=== PATIENT | female | born 1950 | race Caucasian/White ===

== ENCOUNTER 2022-12-07 08:48 | Emergency (ER) | payer MEDICARE, BC ==
[~2022-12-07] VITALS: Ht 157.5 cm; Wt 72.1 kg
[2022-12-07] MEDS ORDERED: fentaNYL 100 MCG/2 ML INJECTION IV PRN (09:05)
[2022-12-07] MEDS ORDERED: ONDANSETRON 4MG 2ML VIAL IV ONE (09:05)
[2022-12-07 09:13] VITALS: TEMP 97.3
[2022-12-07] MEDS ORDERED: fentaNYL 100 MCG/2 ML INJECTION IV ONE (09:20)
[2022-12-07] MEDS ORDERED: NS 1,000 ML IV ONE (09:30)
[2022-12-07 09:36] LABS: BASO # 0.1 10^3/uL (0.0-0.2); BASO % 0.9 % (0.0-1.0); EOS # 0.3 10^3/uL (0.0-0.5); EOS % 2.7 % (0.0-3.0); HEMATOCRIT 35.7 % (36.0-47.0); HEMOGLOBIN 11.7 g/dl (12.0-15.5); LYMPH # 2.2 10^3/uL (1.5-5.0); LYMPH % 23.7 % (24.0-44.0); MEAN CORPUSCULAR HEMOGLOBIN 30.4 pg (27.0-33.0); MEAN CORPUSCULAR HGB CONC 32.8 g/dl (32.0-36.5); MEAN CORPUSCULAR VOLUME 92.7 fl (80.0-96.0); MONO # 0.7 10^3/uL (0.0-0.8); NEUTROPHILS # 5.9 10^3/uL (1.5-8.5); NEUTROPHILS % 64.4 % (36.0-66.0); PLATELET COUNT, AUTOMATED 335 10^3/uL (150-450); RED BLOOD COUNT 3.85 10^6/uL (4.00-5.40); WHITE BLOOD COUNT 9.1 10^3/uL (4.0-10.0)
[2022-12-07] MEDS ORDERED: NS 1,000 ML IV SCH (10:20)
[2022-12-07] MEDS: propofoL 200 MG/20 ML VIAL IV.PROC PRN ×4 (10:25→10:44)
[2022-12-07 11:57] VITALS: BP 116/60
[2022-12-07 11:58] VITALS: O2SAT 98
== END 2022-12-07 12:22 | disposition home or self-care (01) ==
LOC: M ED 08:48 → EDBD 08:48 → M ED 12:22
DX: T84.021A Dislocation of internal left hip prosthesis, initial encounter (principal); Y79.2 Prosthetic and other implants, materials and accessory orthopedic devices associated with adverse incidents; Z96.643 Presence of artificial hip joint, bilateral; M25.552 Pain in left hip; I10 Essential (primary) hypertension; E78.9 Disorder of lipoprotein metabolism, unspecified; Z88.1 Allergy status to other antibiotic agents; Z88.8 Allergy status to other drugs, medicaments and biological substances; Z79.899 Other long term (current) drug therapy
CPT/HCPCS: 27266; 72170; 73502; 80047; 85025; 93041; 94760; 96374; 99285; J2405; J3010